=== PATIENT | male | born 1945 | race Caucasian/White ===

== ENCOUNTER 2018-04-15 10:16 | Day surgery (SDC) | payer MEDICARE ==
[~2018-04-15] VITALS: Ht 172.7 cm; Wt 81.6 kg
[~2018-04-15 10:16] MED LIST: ACHYD1T PO; ASPI-266 PO; BETA1TAB15 PO; CIPR500T78 PO; CPR500T PO; DOXY50CA2 PO; MULT1CAP27 PO; NIAC250T17 PO; PHEN200T27 PO
[2018-04-15] MEDS ORDERED: ceFAZolin 2 GM IV Premixed 50 ML IV ONE (10:30)
[2018-04-15] MEDS ORDERED: LACTATED RINGERS 1,000 ML IV PRN (10:30)
[2018-04-15] MEDS ORDERED: MIDAZOLAM 2 MG/2 ML (VERSED) VIAL ONE (10:39)
[2018-04-15] MEDS ORDERED: LIDOCAINE PF 2% 5 ML (XYLOCAINE) VIAL ONE (10:39)
[2018-04-15] MEDS ORDERED: proPOfol 200 MG/20 ML (DIPRIVAN) VIAL IV ONE (10:39)
[2018-04-15] MEDS ORDERED: fentaNYL INJECTION 100 MCG/2 ML AMP ONE (10:39)
[2018-04-15] MEDS ORDERED: ONDANSETRON 4 MG/2 ML (SDV) Z0FRAN ONE (10:39)
[2018-04-15] MEDS ORDERED: SEVOFLURANE (ULTANE) 15 ML INHAL SOLN ONE (10:39)
[2018-04-15 10:45] VITALS: BP 162/75
[2018-04-15] MEDS ORDERED: BUP/EPI 0.5% 1:200,000 (SENSORCAINE) 30 ML VIAL ONE (11:12)
--- NOTE | 2018-04-15 11:57 | Progress Note-Pre Operative ---
Pre-Operative Progress Note H&P Reviewed The H&P was reviewed, patient examined and no changes noted. Date Seen by Provider: Apr 07, 2018 Time Seen by Provider: 11:00 Date H&P Reviewed: Apr 15, 2018 Time H&P Reviewed: 11:56 Pre-Operative Diagnosis: Skin lesion-left neck HECTOR ROMERO MD Apr 15, 2018 11:57
[2018-04-15] MEDS ORDERED: TRAM50TA2 PO (12:42)
--- NOTE | 2018-04-15 12:43 | Discharge Inst-Simple/Standard ---
Discharge Inst-Standard Discharge Medications New, Converted or Re-Newed RX: RX on Chart Patient Instructions/Follow Up Plan of Care/Instructions/FU: Band-Aid off in 48 hours. Follow-up with my nurse in 10 days for suture Activity as Tolerated: Yes Discharge Diet: No Restrictions HECTOR ROMERO MD Apr 15, 2018 12:43
--- NOTE | 2018-04-15 12:54 | Operative Report ---
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 He was offered prompt excision with frozen section to confirm the diagnosis and ensure negative margins Informed consent was obtained after reviewing the details of the procedure and complications of infection and hematoma. Description of the procedure: He was placed supine on the operative table and general anesthesia induced. 2 g of Ancef were administered intravenously as prophylaxis against wound infection. Left side of the neck was prepared and draped in the usual sterile manner. Preemptive analgesia was established using 0.5 percent Marcaine with epinephrine. An elliptical incision 4.5 cm in length by 3 cm in width was made and the lesion excised down to the subcutaneous tissue. It was oriented with silk sutures and sent for histologic examination. The pathologist confirmed a squamous cell carcinoma with negative margins. Hemostasis was achieved using cautery and the incision closed using continuous 6 -0 nylon sutures. Steri-Strips and a nonadherent dressing were then applied. He tolerated the procedure well, was extubated in the operative room and taken to the recovery room in a stable condition. Findings of the Procedure See op report Allergies and Home Medications Allergies Coded Allergies: No Known Drug Allergies (Unverified , 03/11/10) Home Medications Doxycycline Hyclate 50 Mg Capsule, 50 MG PO BID, (Reported) Tramadol HCl 50 Mg Tablet, 50 MG PO Q12H PRN for PAIN-MILD TO MODERATE Prescribed by: HECTOR ROMERO on 04/15/18 1242 Vit A/Vit C/Vit E/Zinc/Copper 1 Each Tablet, 1 EACH PO DAILY, (Reported) Patient Home Medication List Home Medication List Reviewed: Yes HECTOR ROMERO MD Apr 15, 2018 12:54
[2018-04-15] MEDS ORDERED: ONDANSETRON 4 MG/2 ML (SDV) Z0FRAN IVP PRN (13:15)
[2018-04-15] MEDS ORDERED: morphine INJ 10 MG/ML 1ML (SYR OR VIAL) IVP ONE (13:15)
[2018-04-15] MEDS ORDERED: MEPERIDINE (DEMEROL) INJ 50 MG/ML IVP ONE (13:15)
[2018-04-15 13:55] VITALS: BP 152/83
[2018-04-15 14:25] VITALS: BP_SYST 152; BP_SYST 157; BP_DIAS 83
--- OUTSIDE RECORDS SUMMARY | 2018-04-15 15:11 | XMS REPORT | Clinical Summary ---
Author Author [facility] Address Unknown Phone Unavailable Care Team Providers Care Sheet Metal Fabricator Name Role Phone Pato Abbott MD Unavailable Alena García RN Unavailable Unavailable Keren Stewart RN Unavailable Unavailable Kirstin Pena RN Unavailable Unavailable Ashish Colon RN Unavailable Unavailable Jesus Anne MD PCP Deniz Scott MD Unavailable Source Comments Some departments are not documenting in the electronic medical record. If you do not see the information that you expected, contact Release of Information in the Health Information Management department at [phone] for further assistance in locating additional records.[facility] Allergies No Known Allergies Medications End Date Status Medication Sig Dispensed Refills Start Date Active HYDROcodone/acetaminophen Take one 10 tablet 0 (NORCO) 5/325 mg tablet tablet by 8 mouth every 4 hours as needed for Pain Active ciprofloxacin (CIPRO) 500 Take one 20 tablet 2 mg tablet tablet by 8 mouth twice daily. Active Problems Problem Noted Date Postprocedural stricture of anterior urethra 11/06/2017 Overview: Added automatically from request for surgery [id number] Hematuria 02/15/2014 Urethral stricture 04/26/2013 Overview: History of BPH -- underwent TURP by outside urologist -- [place] 6 prostate cancer. He subsequently developed voiding dysfunction, and cystoscopy revealed a penile urethral stricture, which was dilated -- recurrence of symptoms -- recurrence of the stricture, and retrograde urethrogram showed a 4 cm stricture in the proximal and mid penile urethra. 05/05/13 -- 1st stage Durga urethroplasty with STSG. 11/05/13 -- 2nd stage Durga urethroplasty, island flap urethral repair Encounters Care Team Description Date Type Specialty Pato Abbott MD Postprocedural stricture of anterior urethra (Primary Dx) 02/10/2018 Office Visit Oncology from Last 3 Months Family History Medical History Relation Name Comments Heart Disease Brother Urologic Problems Father Brain Tumor Mother Cancer Mother Relation Name Status Comments Brother Father Mother Social History Date Tobacco Use Types Packs/Day Years Used Quit: 03/24/1994 Former Smoker Pipe Smokeless Tobacco: Never Used Alcohol Use Drinks/Week oz/Week Comments Yes 2 Glasses of 1.2 wine 0 Cans of beer Sex Assigned at Date Recorded Not on file Industry Job Start Date Occupation Not on file Not on file Not on file Travel End Travel History Travel Start No recent travel history available. Last Filed Vital Signs Time Taken Vital Sign Reading 02/10/2018 1:40 PM VTC TECHNICIAN Blood Pressure 136/100 02/10/2018 1:40 PM VTC TECHNICIAN Pulse 61 02/10/2018 1:40 PM VTC TECHNICIAN Temperature 36.3 C (97.4 F) 02/10/2018 1:40 PM VTC TECHNICIAN Respiratory Rate 18 02/10/2018 1:40 PM VTC TECHNICIAN Oxygen Saturation 98% - Inhaled Oxygen - Concentration 02/10/2018 1:40 PM VTC TECHNICIAN Weight 85.2 kg (187 lb 12.8 oz) 02/10/2018 1:40 PM VTC TECHNICIAN Height 168.3 cm (5' 6.25") 02/10/2018 1:40 PM VTC TECHNICIAN Body Mass Index 30.08 Plan of Treatment Health Maintenance Due Date Last Done Comments HEPATITIS C SCREENING 1945 PHYSICAL (COMPREHENSIVE) 07/05/1951 EXAM DTAP/TDAP VACCINES (1 - 1962 Tdap) COLORECTAL CANCER 1994 SCREENING SHINGLES RECOMBINANT 1994 VACCINE (1 of 2) ABDOMINAL AORTIC ANEURYSM 2009 SCREENING PNEUMONIA (PCV13/PPSV23) 2009 VACCINES (1 of 2 - PCV13) INFLUENZA VACCINE 10/22/2017 Results Not on filefrom Last 3 Months Insurance Payer Benefit Subscriber ID Type Phone Address Plan / Group MEDICARE MEDICARE xxxxxxxxxxx Medicare PART A AND B BCBS SAMANTHA BCBS xxxxxxxxxxxx Medicare SUPPLEMENT Advance Directives Patient has advance care planning documents, and code status on file. For more information, please contact: [facility] [address] [place] [address] Date Inactivated Comments Code Status Date Activated 11/06/2013 1:53 PM Full Code 11/05/2013 6:44 PM Provider has discussed Code Status No, more discussion w/Patient or Family? needed 05/10/2013 2:02 PM Full Code 05/05/2013 1:52 PM Provider has discussed Code Status No, discussion not w/Patient or Family? necessary based on Dx 05/05/2013 1:52 PM Full Code 05/05/2013 1:52 PM Provider has discussed Code Status No, discussion not w/Patient or Family? necessary based on Dx
--- OUTSIDE RECORDS SUMMARY | 2018-04-15 15:11 | XMS REPORT | Encounter Summary ---
Author Author [facility] Organization [facility] Address Unknown Phone Unavailable Care Team Providers Care Livestock Agent Name Role Phone Pato Abbott MD Unavailable Alena García RN Unavailable Unavailable Keren Stewart RN Unavailable Unavailable Kirstin Pena RN Unavailable Unavailable Ashish Colon RN Unavailable Unavailable Jesus Anne MD PCP Deniz Scott MD Unavailable Reason for Visit * Reason Comments Heme/Onc Care Encounter Details Care Team Description Date Type Department Pato Abbott MD [address] [place] [address] Postprocedural stricture of anterior urethra (Primary Dx) 02/10/2018 Office Visit [facility] - IC Exam [id number] [place], [place] [address] Social History Date Tobacco Use Types Packs/Day [...] Travel Start No recent travel history available. as of this encounter Last Filed Vital Signs Time Taken Vital Sign Reading 02/10/2018 1:40 PM CIVILIAN JAIL OFFICER Blood Pressure 136/100 02/10/2018 1:40 PM CIVILIAN JAIL OFFICER Pulse 61 02/10/2018 1:40 PM CIVILIAN JAIL OFFICER Temperature 36.3 C (97.4 F) 02/10/2018 1:40 PM CIVILIAN JAIL OFFICER Respiratory Rate 18 02/10/2018 1:40 PM CIVILIAN JAIL OFFICER Oxygen Saturation 98% - Inhaled Oxygen - Concentration 02/10/2018 1:40 PM CIVILIAN JAIL OFFICER Weight 85.2 kg (187 lb 12.8 oz) 02/10/2018 1:40 PM CIVILIAN JAIL OFFICER Height 168.3 cm (5' 6.25") 02/10/2018 1:40 PM CIVILIAN JAIL OFFICER Body Mass Index 30.08 in this encounter Functional Status Date of Assessment Functional Status Response 11/04/2017 Does the patient have a hearing impairment: No 11/04/2017 Does the patient have a visual impairment: Yes 11/04/2017 Does the patient have impaired ambulation: No 11/04/2017 Does the patient have an activity of daily living No (ADL) impairment: 11/04/2017 Does the patient have an instrumental activity of No daily living (IADL) impairment: Date of Assessment Cognitive Status Response 11/04/2017 Does the patient have a cognitive impairment: No as of this encounter Progress Notes * Pato Abbott MD - 02/10/2018 2:00 PM CIVILIAN JAIL OFFICER Name: Michael Acevedo Jr. : 1945 AGE: 72 y.o. DATE OF SERVICE: 02/10/2018 Subjective: Reason for Visit: Heme/Onc Care Michael Acevedo Jr. is a 72 y.o. male. Cancer Staging No matching staging information was found for the patient. History of Present Illness 72 yo male s/p 2 stage Loida urethroplasty with STSG presents for f/u. He had a recurrence at his proximal anastomosis and underwent dilation. He reports that his stream is adequate currently. It was significantly improved following the dilation and has slowed slightly but is still better than it was before surgery. He currently denies pain. No associated symptoms such as gross hematuria. No other modifying factors. Past Medical History: Diagnosis Date Bladder calculus Colon polyps Elevated PSA Enlarged prostate Kidney stones 1969 Prostate cancer (HCC) Urethral stricture Urinary tract infection Past Surgical History: Procedure Laterality Date HX TONSILLECTOMY 1950 CYSTOURETHROSCOPY 2012 URETHRAL STRICTURE DILATATION 2012 [place] CYSTOURETHROSCOPY 02/14/2014 CYSTOSCOPY N/A 11/12/2017 CYSTOSCOPY FLEXIBLE WITH DILATION OF URETHRAL STRICTURE performed by Pato Abbott MD at [facility]/Periop HX SURGERY Metal plate in Right elbow PROSTATE SURGERY 2004, 2012 TURP 2004, 2012 Family History Problem Relation Age of Onset Brain Tumor Mother Cancer Mother Urologic Problems Father Heart Disease Brother Social History Social History Marital status: Spouse name: N/A Number of children: N/A Years of education: N/A Social History Main Topics Smoking status: Former Smoker Types: Pipe Quit date: 03/24/1994 Smokeless tobacco: Never Used Alcohol use 1.2 oz/week 2 Glasses of wine per week Drug use: No Sexual activity: Yes Partners: Female Other Topics Concern Not on file Social History Narrative No narrative on file Review of Systems Constitutional: Negative. HENT: Negative. Eyes: Negative. Respiratory: Negative. Cardiovascular: Negative. Gastrointestinal: Negative. Endocrine: Negative. Genitourinary: Negative. Musculoskeletal: Negative. Allergic/Immunologic: Negative. Neurological: Negative. Hematological: Negative. Psychiatric/Behavioral: Negative. All other systems reviewed and are negative. Objective: ciprofloxacin (CIPRO) 500 mg tablet Take one tablet by mouth twice daily. HYDROcodone/acetaminophen (NORCO) 5/325 mg tablet Take one tablet by mouth every 4 hours as needed for Pain Vitals: 02/10/18 1340 Pulse: 61 Resp: 18 TempSrc: Oral SpO2: 98% Weight: 85.2 kg (187 lb 12.8 oz) Height: 168.3 cm (66.25") Body mass index is 30.08 kg/m. Pain Score: Zero Physical Exam Constitutional: He is oriented to person, place, and time. He appears well- developed and well-nourished. No distress. HENT: Head: Normocephalic and atraumatic. Eyes: Conjunctivae are normal. Right eye exhibits no discharge. Left eye exhibits no discharge. No scleral icterus. Neck: No tracheal deviation present. Cardiovascular: Normal rate. Pulmonary/Chest: Effort normal. No stridor. No respiratory distress. Abdominal: He exhibits no distension. Musculoskeletal: Normal range of motion. He exhibits no edema or tenderness. Neurological: He is alert and oriented to person, place, and time. Skin: Skin is warm and dry. No rash noted. He is not diaphoretic. No erythema. No pallor. Psychiatric: He has a normal mood and affect. His behavior is normal. Judgment and thought content normal. Assessment and Plan: 72 yo male s/p 2 stage urethroplasty with STSG, proximal recurrence -continue observation/current plan. RTC in 6 months for symptom evaluation. Pt understands likelihood of recurrence is high and was counseled on the symptoms to watch for. He will call with any worsening symptoms or problems. LIAN JAIL OFFICER in this encounter Plan of Treatment Not on fileas of this encounter Visit Diagnoses Diagnosis Postprocedural stricture of anterior urethra - Primary in this encounter
--- OUTSIDE RECORDS SUMMARY | 2018-04-15 15:11 | XMS REPORT | Continuity of Care Document ---
Author Author [facility] Organization [facility] Address Unknown Phone Unavailable Allergies Active Description Code Type Severity Reaction Onset Reported/Identified Relationship to Patient Clinical Status Yes No Known Drug Allergies [id number] Drug Allergy Unknown N/A 03/11/2010 Medications There is no data. Problems Date Dx Coded Attending Type Code Diagnosis Diagnosed By 03/12/2010 Ot 599.71 03/12/2010 Ot 600.00 03/12/2010 Ot V13.01 02/25/2013 IVANA COBOS, SWATI Quiñonez Ot 185 MALIGN NEOPL PROSTATE 02/25/2013 IVANA COBOS, SWATI Quiñonez Ot 598.9 URETHRAL STRICTURE NOS 02/25/2013 IVANA COBOS, SWATI Quiñonez Ot 602.0 CALCULUS OF PROSTATE 03/27/2013 CARMENZA KISER INTERACTIVE MEDIA MARKETING SPECIALIST Ot 599.0 URIN TRACT INFECTION NOS 03/27/2013 CARMENZA KISER INTERACTIVE MEDIA MARKETING SPECIALIST Ot 788.20 RETENTION OF URINE NOS 05/17/2014 Ot V12.72 05/17/2014 Ot V76.51 06/21/2014 Ot V12.72 06/21/2014 Ot V76.51 07/07/2014 Ot 211.3 07/07/2014 Ot 562.10 07/07/2014 Ot V67.09 07/07/2014 Ot 185 07/07/2014 Ot 562.10 07/07/2014 IVANA COBOS, SWATI Quiñonez Ot 185 07/07/2014 IVANA COBOS, SWATI Quiñonez Ot 599.70 07/07/2014 IVANA COBOS, SWATI Quiñonez Ot 185 07/07/2014 IVANA COBOS, SWATI Quiñonez Ot 594.1 07/07/2014 IVANA COBOS, SWATI Quiñonez Ot 598.9 07/07/2014 IVANA COBOS, SWATI Quiñonez Ot 791.9 07/07/2014 IVANA COBOS, SWATI Quiñonez Ot V72.63 07/07/2014 IVANA SWATI COBOS Ot V74.8 07/07/2014 SWATI HEATH MD Ot 598.9 07/07/2014 Ot V12.72 07/07/2014 Ot V76.51 07/07/2014 Ot V72.84 07/12/2014 Ot V72.84 07/13/2014 Ot V72.84 01/13/2015 SWATI HEATH MD Ot 598.9 03/13/2016 RUFUS DEVI MD, Ot S01.21XA LACERATION WITHOUT FOREIGN BODY OF NOSE, 03/13/2016 RUFUS DEVI MD, Ot S52.502A UNSP FRACTURE OF THE LOWER END OF LEFT R 03/13/2016 RUFUS DEVI MD Ot W01.0XXA FALL SAME LEV FROM SLIP/TRIP W/O STRIKE 03/13/2016 RUFUS DEVI MD Ot Y99.8 OTHER EXTERNAL CAUSE STATUS 03/14/2016 RUFUS DEVI MD, Ot S01.21XA LACERATION WITHOUT FOREIGN BODY OF NOSE, 03/14/2016 RUFUS DEVI MD Ot S52.502A UNSP FRACTURE OF THE LOWER END OF LEFT R 03/14/2016 RUFUS DEVI MD Ot W01.0XXA FALL SAME LEV FROM SLIP/TRIP W/O STRIKE 03/14/2016 RUFUS DEVI MD Ot Y99.8 OTHER EXTERNAL CAUSE STATUS 03/15/2016 Ot 185 MALIGN NEOPL PROSTATE 03/15/2016 Ot 562.10 DIVERTICULOSIS COLON (W/O MENT OF HEMORR 03/15/2016 SWATI HEATH MD Ot 185 MALIGN NEOPL PROSTATE 03/15/2016 SWATI HEATH MD Ot 599.70 HEMATURIA, UNSPECIFIED 03/15/2016 SWATI HEATH MD Ot 185 MALIGN NEOPL PROSTATE 03/15/2016 SWATI HEATH MD Ot 594.1 BLADDER CALCULUS NEC 03/15/2016 SWATI HEATH MD Ot 598.9 URETHRAL STRICTURE NOS 03/15/2016 SWATI HEATH MD Ot 791.9 ABN URINE FINDINGS NEC 03/15/2016 SWATI HEATH MD Ot V72.63 PRE-PROCEDURAL LABORATORY EXAMINATION 03/15/2016 SWATI HEATH MD, Ot V74.8 SCREEN-BACTERIAL DIS NEC 03/15/2016 SWATI HEATH MD Ot 598.9 URETHRAL STRICTURE NOS 03/15/2016 Ot V12.72 PERSONAL HISTORY OF COLONIC POLYPS 03/15/2016 Ot V76.51 SCREEN MAL NEOP-COLON 03/15/2016 Ot V72.84 EXAM PRE- OPERATIVE NOS Procedures There is no data. Results There is no data. Encounters ACCT No. Visit Date/Time Discharge Status Pt. Type Provider Facility Loc./Unit Complaint [id number] 03/13/2016 14:55:00 03/13/2016 18:20:00 DIS Emergency SHANDRA COBOS, RUFUS Alexandre [facility] ER FALL/LEFT ARM INJURY [id number] 04/20/2013 10:25:00 04/20/2013 23:59:59 CLS Outpatient SWATI HEATH MD [facility] RAD ANTERIOR STRICTURE [id number] 03/27/2013 14:10:00 03/27/2013 15:06:00 DIS Emergency CARMENZA KISER APRN [facility] ER UNABLE TO URINATE [id number] 02/24/2013 06:05:00 02/25/2013 13:30:00 DIS Outpatient SWATI HEATH MD [facility] PROSTATE CANCER;BLADDER STONE [id number] 02/16/2013 12:29:00 02/16/2013 23:59:59 CLS Outpatient SWATI HEATH MD [facility] PREOP PROSTATE CANCER; BLADDER STONE [id number] 02/01/2013 07:54:00 02/01/2013 23:59:59 CLS Outpatient SWATI HEATH MD [facility] RAD HEMATURIA,CA PROSTATE [id number] 04/15/2018 12:15:00 PEN Preadmit NICK COBOS, HECTOR Stanton [facility] NECK LESION [id number] 05/16/2014 06:21:00 Document Registration [id number] 05/12/2014 07:10:00 Document Registration [id number] 02/12/2011 10:20:00 Document Registration [id number] 07/20/2010 08:09:00 Document Registration [id number] 03/11/2010 18:50:00 Document Registration
== END 2018-04-15 14:50 | disposition home or self-care (01) ==
LOC: SDC 10:16
PROVIDERS: ATTEND Surgery
DX: C44.42 Squamous cell carcinoma of skin of scalp and neck (principal); Z11.2 Encounter for screening for other bacterial diseases; Z80.3 Family history of malignant neoplasm of breast; Z85.46 Personal history of malignant neoplasm of prostate
CPT/HCPCS: 87081